=== PATIENT | male | born 1945 | race Caucasian/White ===

== ENCOUNTER → 2020-04-04 | Day surgery (SDC) | payer MEDICARE, OTHER ==
[~2020-04-04] MED LIST: ACID REDUCER PO; ASPIR 8181 MG PO; B12 PO; COQ-1030 MG PO; DIABETIC MEDICATION PO; FENOFIBRATE145 MG PO; FENTANYL CITRATE/PF 100MCG/2 ML INJ ONE; FISH OIL OMEGA1 EACH PO; GLUCAGON FOR INJ 1 MG VIAL ONE; HYOSCYAMINE 0.125 MG TAB ONE; JANUVIA100 MG PO; LIDOCAINE HCL 2% LOCAL INJ 5 ML SDV VIAL INJ ONE; MEN'S ONE DAIL1 EACH PO; METFORMIN HCL500 MG PO; MIDAZOLAM HCL 2 MG/2 ML VIAL ONE; POTASSIUM PO; PROPOFOL IV EMULSION 10 MG/ML 20 ML VIAL ONE; SIMVASTATIN20 MG PO; STOOL SOFTNER PO; VITAMIN D2000 UNI1 PO; VITAMIN D250 MCG PO
[2020-04-04 16:15] VITALS: BP 127/79
--- NOTE | 2020-04-04 18:29 | Operative Report ---
DATE OF PROCEDURE: 04/04/2020 SURGEON: Dom Tapia MD PROCEDURE: Colonoscopy with the EGD scope. INDICATIONS FOR COLONOSCOPY: Colorectal cancer screening, abnormal CT scan of the abdomen. MEDICATIONS: The patient was done under MAC, please see anesthesiologist's note. PROCEDURE IN DETAIL: With the patient in the left lateral decubitus position, a flexible fiberoptic Olympus colonoscope was introduced into the rectum and advanced to the distal sigmoid colon. It could not be advanced any further as the distal sigmoid colon was sharply angulated and fixed, and could not be traversed with the adult colonoscope. It was then withdrawn. An EGD scope was then introduced into the rectum and with some difficulty, the distal sigmoid colon was traversed and the scope was advanced to approximately 90 cm from the anal verge probably to the transverse colon. It was then withdrawn slowly and some retained fecal material was noted along with diverticular disease involving the descending and the sigmoid. One polyp was hot snared from the sigmoid colon. There was a prominent fold noted at the rectosigmoid junction that was biopsied. Two polyps were hot snared and one polyp was hot biopsied from the rectum. The scope was then retroflexed into the distal rectum and small internal hemorrhoids were noted, none of which was actively bleeding. The scope was then straightened out, it was subsequently withdrawn, and the patient tolerated the procedure well. IMPRESSION: 1. Colonoscopy with the EGD scope to approximately 90 cm from the anal verge. 2. Sharply angulated and fixed distal sigmoid colon, could not be traversed with the colonoscope and was negotiated with some difficulty with the EGD scope. 3. Diverticulosis. 4. Sigmoid colon polyp, hot snared. 5. Prominent folds rectosigmoid area, biopsied. 6. Rectal polyps x3, two hot snared and one hot biopsied. 7. Internal hemorrhoids, none actively bleeding. PLAN: Follow up histology. The patient will need an air contrast barium enema to visualize the rest of the colon. Dom Tapia MD [facility] [place] /[id number] cc: Salinas Yu MD
== END | disposition home or self-care (01) ==
LOC: OR 12:07
PROVIDERS: ATTEND Internal Medicine Gastroenterology
DX: R93.3 Abnormal findings on diagnostic imaging of other parts of digestive tract (principal); K63.5 Polyp of colon; K62.1 Rectal polyp; K57.30 Diverticulosis of large intestine without perforation or abscess without bleeding; K63.89 Other specified diseases of intestine; K59.09 Other constipation; K64.8 Other hemorrhoids; K21.9 Gastro-esophageal reflux disease without esophagitis; E11.9 Type 2 diabetes mellitus without complications; R03.0 Elevated blood-pressure reading, without diagnosis of hypertension; R53.1 Weakness; N20.0 Calculus of kidney; M19.90 Unspecified osteoarthritis, unspecified site; R01.1 Cardiac murmur, unspecified; E78.5 Hyperlipidemia, unspecified; Z88.2 Allergy status to sulfonamides; Z01.810 Encounter for preprocedural cardiovascular examination; Z01.812 Encounter for preprocedural laboratory examination; Z11.59 Encounter for screening for other viral diseases; Z79.82 Long term (current) use of aspirin; Z86.19 Personal history of other infectious and parasitic diseases; Z87.01 Personal history of pneumonia (recurrent); Z86.11 Personal history of tuberculosis
CPT/HCPCS: 45380; 45384; 45385; 93005; J1610; J2001; J2250; J2704; J3010; U0002

== ENCOUNTER → 2020-04-15 | Outpatient (CLI) | payer MEDICARE ==
[~2020-04-15] MED LIST changes: -FENTANYL CITRATE/PF 100MCG/2 ML INJ ONE; -GLUCAGON FOR INJ 1 MG VIAL ONE; -HYOSCYAMINE 0.125 MG TAB ONE; -LIDOCAINE HCL 2% LOCAL INJ 5 ML SDV VIAL INJ ONE; -MIDAZOLAM HCL 2 MG/2 ML VIAL ONE; -PROPOFOL IV EMULSION 10 MG/ML 20 ML VIAL ONE
--- NOTE | 2020-04-15 12:10 | Diagnostic Imaging Report ---
EXAM: Abdomen Radiograph 1 View(s) INDICATION: ^[id number] ^[id number] ^ABDOMEN PAIN COMPARISON: None FINDINGS: The bowel gas pattern is nonspecific. Moderate volume of formed stool within the colon. Small calcific densities in the abdominal left upper quadrant may be vascular in etiology. No free intraperitoneal air. Degenerative changes of the lumbar spine. IMPRESSION: No acute abdominal radiographic abnormality. Signed by: Dipak Benitez MD on 04/15/2020 12:07 PM
== END ==
LOC: RAD 11:17
PROVIDERS: ATTEND Internal Medicine Gastroenterology
DX: R10.12 Left upper quadrant pain (principal)
CPT/HCPCS: 74018

== ENCOUNTER → 2020-05-20 | Outpatient (CLI) | payer MEDICARE ==
[~2020-05-20] MED LIST changes: +FENTANYL CITRATE/PF 100MCG/2 ML INJ ONE; +MIDAZOLAM HCL 2 MG/2 ML VIAL ONE
[2020-05-20 07:54] LABS: HEMOGLOBIN 11.1 g/dL (14.0-18.0)
[2020-05-20 08:12] LABS: INR 1.06; PROTHROMBIN TIME 14.3 seconds (11.9-14.5)
[2020-05-20 08:13] LABS: PARTIAL THROMBOPLASTIN TIME 32.2 seconds (23.8-35.5)
--- NOTE | 2020-05-20 11:25 | Diagnostic Imaging Report ---
PROCEDURE: CT-guided biopsy Procedural Personnel Attending physician(s): Db Negrete MD Fellow physician(s): None Resident physician(s): None Advanced practice provider(s): None Pre-procedure diagnosis: Peritoneal carcinomatosis Post-procedure diagnosis: Same Indication: Histopathologic diagnosis Previous biopsy of same target (QCDR): No Additional clinical history: None Complications: No immediate complications. IMPRESSION: CT-guided biopsy of peritoneal soft tissue thickening. Plan: Specimen(s) sent for evaluation. PROCEDURE SUMMARY: - Percutaneous CT-guided core needle and fine needle aspiration biopsy biopsy - Additional procedure(s): None PROCEDURE DETAILS: Pre-procedure Reference imaging for biopsy target: Outside abdomen/pelvis CT Consent: Informed consent for the procedure including risks, benefits and alternatives was obtained and time-out was performed prior to the procedure. Preparation: The site was prepared and draped using maximal sterile barrier technique including cutaneous antisepsis. Anesthesia/sedation Level of anesthesia/sedation: Moderate sedation (conscious sedation) 0.5mg Versed, 25mcg fentanyl Anesthesia/sedation administered by: Independent trained observer under attending supervision with continuous monitoring of the patient?s level of consciousness and physiologic status Total intra-service sedation time (minutes): 45 Imaging prior to biopsy The patient was positioned supine. Initial imaging was performed using noncontrast CT. Biopsy target: - Maximal diameter (cm): 4 - Location: Midline/RUQ abdominal peritoneal soft tissue Other findings: Preliminary imaging demonstrates increased conspicuity of peritoneal soft tissue thickening. Bilateral pleural effusions have also increased compared to prior outside CT, now moderate in size. Redemonstration of multiple bilateral pulmonary nodules most likely metastatic. Biopsy Local anesthesia was administered. Under CT guidance, the biopsy needle was advanced to the target and biopsy was performed. Coaxial needle: 17 gauge Core needle biopsy device: [employer] Core needle size: 18 gauge Number of core specimens: 4 Fine needle aspiration device: Chiba Fine needle size: 22 gauge Number of FNA specimens: 3 On-site biopsy touch preparation: Yes Additional sampling recommendations: None Preliminary assessment of sample adequacy: Adequate Needle removal The biopsy needle was removed and a sterile dressing was applied. Tract embolization: None Imaging following biopsy Immediate post-biopsy imaging was performed using noncontrast CT. Post-biopsy imaging findings: No hematoma or other postprocedural complication. Contrast Contrast agent: None Contrast volume (mL): [address] dose length product (mGy-cm): 1031 Additional Details Additional description of procedure: None Equipment details: None Specimens removed: Biopsy samples as detailed above Estimated blood loss (mL): Less than 10 Standardized report: [id number] Attestation Signer name: Db Negrete MD I attest that I was present for the entire procedure. I reviewed the stored images and agree with the report as written. Signed by: Db Negrete MD on 05/20/2020 11:21 AM
== END ==
LOC: CT 07:22
PROVIDERS: ATTEND Internal Medicine Hematology & Oncology
DX: R91.8 Other nonspecific abnormal finding of lung field (principal); Z11.59 Encounter for screening for other viral diseases
CPT/HCPCS: 10009; 36415; 49180; 85014; 85049; 85610; 85730; 88172; 88173; 88305; 88342; J2250; J3010; U0002; 99152; 99153

== ENCOUNTER → 2020-06-02 | Day surgery (SDC) | payer MEDICARE, OTHER ==
[2020-05-30 16:08] LABS: BASOPHILS % 0.2 % (0.0-1.0); EOSINOPHILS % 0.1 % (0.0-6.0); HEMATOCRIT 34.7 % (38.2-49.6); LYMPHOCYTES % 11.4 % (18.0-39.1); MEAN CORPUSCULAR HEMOGLOBIN 29.2 pg (28-32); MEAN CORPUSCULAR HGB CONC 31.7 g/dL (31-35); MONOCYTES # (AUTO) 0.5 (0.2-0.8); MONOCYTES % 6.4 % (4.4-11.3); NEUTROPHILS # (AUTO) 6.9 (2.1-6.9); NEUTROPHILS % 81.7 % (38.7-80.0); PLATELET COUNT 220 x10e3/uL (140-360); RED BLOOD COUNT 3.77 x10e6/uL (4.3-5.7); RED CELL DISTRIBUTION WIDTH 13.4 % (11.7-14.4)
[2020-05-30 16:35] LABS: ALBUMIN 2.4 g/dL (3.5-5.0); ALBUMIN/GLOBULIN RATIO 0.7 (0.8-2.0); ANION GAP 11.2 mmol/L (8-16); CALCIUM 11.1 mg/dL (8.4-10.2); CREATININE, SERUM 1.99 mg/dL (0.72-1.25); POTASSIUM 3.2 mmol/L (3.5-5.1)
[~2020-06-02] MED LIST changes: +BUPIVACAINE 0.25% 30ML SDV INJ ONE; +DIURETIC; +HEPARIN SOD (PORCINE) 5,000 UNIT/ML VIAL ONE; +LIDOCAINE HCL 1% LOCAL INJ 20 ML VIAL ONE; +LIDOCAINE HCL 2% LOCAL INJ 5 ML SDV VIAL INJ ONE; +PIOGLITAZONE HC45 MG PO; +PROPOFOL IV EMULSION 10 MG/ML 20 ML VIAL ONE; +SODIUM CHLORIDE 0.9% 500ML 500 ML ONE; +VITAMIN PO; +[UNRECOGNIZED DRUG - OTHER] PO
[2020-06-02 15:30] VITALS: BP 119/76
== END | disposition home or self-care (01) ==
LOC: OR 09:49
PROVIDERS: ATTEND Surgery
DX: C15.9 Malignant neoplasm of esophagus, unspecified (principal); I10 Essential (primary) hypertension; E11.9 Type 2 diabetes mellitus without complications; Z88.2 Allergy status to sulfonamides; K21.9 Gastro-esophageal reflux disease without esophagitis; Z01.812 Encounter for preprocedural laboratory examination; Z01.818 Encounter for other preprocedural examination; Z11.59 Encounter for screening for other viral diseases
CPT/HCPCS: 36415 ×2; 36571; 71046; 77001; 80053; 82948; 84132; 85025; C1751; J1644; J2001 ×2; J2250; J2704; J3010; J7040; U0002

== ENCOUNTER 2020-06-15 12:18 | Observation (INO) | payer MEDICARE, OTHER ==
[~2020-06-15] VITALS: Ht 177.8 cm; Wt 68.0 kg
[~2020-06-15 12:18] MED LIST changes: -BUPIVACAINE 0.25% 30ML SDV INJ ONE; -FENTANYL CITRATE/PF 100MCG/2 ML INJ ONE; -HEPARIN SOD (PORCINE) 5,000 UNIT/ML VIAL ONE; -LIDOCAINE HCL 1% LOCAL INJ 20 ML VIAL ONE; -LIDOCAINE HCL 2% LOCAL INJ 5 ML SDV VIAL INJ ONE; -MIDAZOLAM HCL 2 MG/2 ML VIAL ONE; -PROPOFOL IV EMULSION 10 MG/ML 20 ML VIAL ONE; -SODIUM CHLORIDE 0.9% 500ML 500 ML ONE
[2020-06-15] MEDS ORDERED: SODIUM CHLORIDE 0.9% 1000ML 1,000 ML IV STA (12:48)
[2020-06-15] MEDS ORDERED: PANTOPRAZOLE 40 MG 10ML VIAL IV ONE (12:48)
[2020-06-15] MEDS ORDERED: ONDANSETRON HCL INJ 2MG/ML 2ML 2 MG/ML VIAL IV ONE (12:48)
[2020-06-15 13:29] LABS: BASOPHILS % 0.2 % (0.0-1.0); LYMPHOCYTES # (AUTO) 0.5 (1.0-3.2); LYMPHOCYTES % 3.4 % (18.0-39.1); MEAN CORPUSCULAR HEMOGLOBIN 29.4 pg (28-32); MEAN CORPUSCULAR HGB CONC 32.5 g/dL (31-35); MEAN CORPUSCULAR VOLUME 90.5 fL (81-99); MONOCYTES # (AUTO) 0.4 (0.2-0.8); MONOCYTES % 2.7 % (4.4-11.3); NEUTROPHILS # (AUTO) 14.9 (2.1-6.9); NEUTROPHILS % 93.1 % (38.7-80.0); PLATELET COUNT 192 x10e3/uL (140-360); RED BLOOD COUNT 4.42 x10e6/uL (4.3-5.7); RED CELL DISTRIBUTION WIDTH 14.9 % (11.7-14.4)
[2020-06-15 13:39] LABS: INR 1.18; PROTHROMBIN TIME 15.6 seconds (11.9-14.5)
[2020-06-15 13:40] LABS: PARTIAL THROMBOPLASTIN TIME 31.2 seconds (23.8-35.5)
--- NOTE | 2020-06-15 13:41 | Emergency Department Note ---
History of Present Illnes History of Present Illness Chief Complaint: General Medicine Complaints History of Present Illness This is a 75 year old male FAMILY REPORTS PT PASSED OUT, PT DENIES, PT AAOX4. EMS CALLED TO HOME TO TRANSPORT. PT IS HOSPICE D/T TERMINAL CANCER UNK TYPE. Historian: Patient, Family Member, Pcb Designer/EMS Arrival Mode: [facility] EMS Treatment [employer] SALES ENGINEER: See EMS Report Aviation Neuropsychologist Required: No Onset (how long ago): minute(s) Radiation: Reports non-radiation Severity: moderate Chronicity: new Context: Reports recent illness Relieving factors: none Exacerbating factors: none Past Medical/Family History Physician Review I have reviewed the patient's past medical and family history. Any updates have been documented here. Past Medical History Recent Fever: No Clinical Suspicion of Infectio: No New/Unexplained Change in Ment: No Past Medical History: Diabetes, Cancer Social History Smoking Cessation: Unknown if ever smoked Counseling Performed: No Alcohol Use: None Any Illegal Drug Use: No TB Exposure/Symptoms: No Physically hurt or threatened: No Family History Family history of heart diseas: No Other Any Pre-Existing Lines (PICC,: No Review of Systems Review of Systems Constitutional: Reports weakness EENTM: Reports no symptoms Cardiovascular: Reports syncope (NEAR-SYNCOPE) Respiratory: Reports no symptoms Gastrointestinal: Reports other (UNABLE TO EAT/DRINK) Genitourinary: Reports no symptoms Musculoskeletal: Reports no symptoms Integumentary: Reports no symptoms Neurological: Reports no symptoms Psychological: Reports no symptoms Endocrine: Reports no symptoms Hematological/Lymphatic: Reports no symptoms Physical Exam Related Data Allergies: Coded Allergies: Sulfa (Sulfonamide Antibiotics) (Verified Allergy, Intermediate, VERY BAD VERTIGO, "KNOCK ME OUT", 06/15/20) Uncoded Allergies: SULFA (Allergy, Intermediate, VERY BAD VERTIGO, "KNOCK ME OUT", 05/30/20) Triage Vital Signs Vital Signs Date Time Temp Pulse Resp B/P (MAP) Pulse Ox O2 Delivery O2 Flow Rate FiO2 06/15/20 12:20 97.1 88 18 94/67 99 Nasal Cannula 4.0 Vital signs reviewed: Yes Physical Exam CONSTITUTIONAL Constitutional: Present cachectic HENT HENT: Present normocephalic, Present atraumatic, Present mucosae dry HENT L/R: Present left ext ear normal, Present right ext ear normal EYES Eyes: Reports PERRL, Reports conjunctivae normal NECK Neck: Present ROM normal PULMONARY Pulmonary: Present effort normal, Present breath sounds normal CARDIOVASCULAR Cardiovascular: Present regular rhythm, Present heart sounds normal, Present capillary refill normal, Present normal rate GASTROINTESTINAL Abdominal: Present soft, Present nontender, Present bowel sounds normal GENITOURINARY Genitourinary: Present exam deferred SKIN Skin: Present warm, Present dry MUSCULOSKELETAL Musculoskeletal: Present ROM normal NEUROLOGICAL Neurological: Present alert, Present oriented x 3, Present no gross motor or sensory deficits PSYCHOLOGICAL Psychological: Present mood/affect normal, Present judgement normal Results Laboratory Result Diagram: 06/15/20 1320 Laboratory Laboratory Tests Test 06/15/20 14:48 06/15/20 13:20 White Blood Count 15.94 x10e3/uL (4.8-10.8) Red Blood Count 4.42 x10e6/uL (4.3-5.7) Hemoglobin 13.0 g/dL (14.0-18.0) Hematocrit 40.0 % (38.2-49.6) Mean Corpuscular Volume 90.5 fL (81-99) Mean Corpuscular Hemoglobin 29.4 pg (28-32) Mean Corpuscular Hemoglobin Concent 32.5 g/dL (31-35) Red Cell Distribution Width 14.9 % (11.7-14.4) Platelet Count 192 x10e3/uL (140-360) Neutrophils (%) (Auto) 93.1 % (38.7-80.0) Lymphocytes (%) (Auto) 3.4 % (18.0-39.1) Monocytes (%) (Auto) 2.7 % (4.4-11.3) Eosinophils (%) (Auto) 0.0 % (0.0-6.0) Basophils (%) (Auto) 0.2 % (0.0-1.0) Neutrophils # (Auto) 14.9 (2.1-6.9) Lymphocytes # (Auto) 0.5 (1.0-3.2) Monocytes # (Auto) 0.4 (0.2-0.8) Eosinophils # (Auto) 0.0 (0.0-0.4) Basophils # (Auto) 0.0 (0.0-0.1) Absolute Immature Granulocyte (auto 0.09 x10e3/uL (0-0.1) Prothrombin Time 15.6 seconds (11.9-14.5) Prothromb Time International Ratio 1.18 Activated Partial Thromboplast Time 31.2 seconds (23.8-35.5) Sodium Level 140 mmol/L (136-145) Potassium Level 3.1 mmol/L (3.5-5.1) Chloride Level 96 mmol/L (98-107) Carbon Dioxide Level 28 mmol/L (22-29) Anion Gap 19.1 mmol/L (8-16) Blood Urea Nitrogen 53 mg/dL (7-26) Creatinine 2.07 mg/dL (0.72-1.25) Estimat Glomerular Filtration Rate 31 ML/MIN (60-) BUN/Creatinine Ratio 26 (6-25) Glucose Level 156 mg/dL (74-118) Calcium Level 8.9 mg/dL (8.4-10.2) Magnesium Level 2.0 MG/DL (1.3-2.1) Total Bilirubin 1.6 mg/dL (0.2-1.2) Aspartate Amino Transf (AST/SGOT) 27 IU/L (5-34) Alanine Aminotransferase (ALT/SGPT) 16 IU/L (0-55) Alkaline Phosphatase 139 IU/L (40-150) Creatine Kinase 32 IU/L (30-200) Creatine Kinase MB 1.10 ng/mL (0-5.0) Troponin I 0.021 ng/mL (0-0.300) B-Type Natriuretic Peptide 131.2 pg/mL (0-100) Total Protein 5.5 g/dL (6.5-8.1) Albumin 2.1 g/dL (3.5-5.0) Globulin 3.4 g/dL (2.3-3.5) Albumin/Globulin Ratio 0.6 (0.8-2.0) Laboratory Tests Test 06/15/20 13:20 White Blood Count 15.94 x10e3/uL (4.8-10.8) Red Blood Count 4.42 x10e6/uL (4.3-5.7) Hemoglobin 13.0 g/dL (14.0-18.0) Hematocrit 40.0 % (38.2-49.6) Mean Corpuscular Volume 90.5 fL (81-99) Mean Corpuscular Hemoglobin 29.4 pg (28-32) Mean Corpuscular Hemoglobin Concent 32.5 g/dL (31-35) Red Cell Distribution Width 14.9 % (11.7-14.4) Platelet Count 192 x10e3/uL (140-360) Neutrophils (%) (Auto) 93.1 % (38.7-80.0) Lymphocytes (%) (Auto) 3.4 % (18.0-39.1) Monocytes (%) (Auto) 2.7 % (4.4-11.3) Eosinophils (%) (Auto) 0.0 % (0.0-6.0) Basophils (%) (Auto) 0.2 % (0.0-1.0) Neutrophils # (Auto) 14.9 (2.1-6.9) Lymphocytes # (Auto) 0.5 (1.0-3.2) Monocytes # (Auto) 0.4 (0.2-0.8) Eosinophils # (Auto) 0.0 (0.0-0.4) Basophils # (Auto) 0.0 (0.0-0.1) Absolute Immature Granulocyte (auto 0.09 x10e3/uL (0-0.1) Lab results reviewed: Yes Imaging Imaging results reviewed: Yes Procedures 12 Lead ECG Interpretation ECG Interpretation : ECG: ECG 1 Aviation Neuropsychologist: Interpreted by ED physician Date: Jun 15, 2020 Time: 13:34 Rhythm: atrial fibrillation Rate: tachycardia BPM: 147 QRS axis: normal ST segments normal: Yes T waves flattening: all Clinical Impression: abnormal ECG Assessment & Plan Medical Decision Making MDM METASTATIC END-STAGE CANCER, PT DNR AND ON HOSPICE, VERY DEHYDRATED DUE TO INABILITY TO EAT/DRINK- CHECK BASELINE LABS, ADMIT FOR COMFORT MEASURES AND PLACEMENT OF FEEDING TUBE Reassessment Reassessment PT AND FAMILY AGREE THAT HE WANTS ONLY COMFORT MEASURES - WILL ADMIT FOR IVF'S, G-TUBE SINCE HE IS UNABLE TO EAT OR DRINK. I SPOKE WITH DR MOELLER (PCP) WHO AGREES WITH PLAN TO PLACE IN HOSPITAL, COMFORT MEASURES AND FEEDING TUBE PLACEMENT SO PT CAN STAY HYDRATED. SPOKE WITH DR Elsy DICKERSON Assessment & Plan Final Impression: (1) Dehydration (2) Metastatic cancer (3) Hypokalemia (4) Atrial fibrillation with RVR (5) Need for comfort care Depart Disposition: ADMITTED Last Vital Signs Date Time Temp Pulse Resp B/P (MAP) Pulse Ox O2 Delivery O2 Flow Rate FiO2 06/15/20 12:46 106 18 112/71 94 Nasal Cannula 3.0 06/15/20 12:20 97.1 Home Meds Reported Medications [Spironolactone Hctz] No Conflict Check, PO BID 06/02/20 [Vitamin] No Conflict Check, PO DAILY 06/02/20 Pioglitazone Hcl (PIOGLITAZONE HCL) 45 Mg Tablet, 15 MG PO DAILY, #30 TAB 06/02/20 Ubidecarenone (COQ-10) 30 Mg Capsule, PO DAILY 04/04/20 Ergocalciferol (Vitamin D2) (Vitamin D2) 50 Mcg Capsule, PO DAILY 04/04/20 Fenofibrate Nanocrystallized (FENOFIBRATE) 145 Mg Tablet, 145 MG PO DAILY 04/02/20 Cholecalciferol (Vitamin D3) (VITAMIN D) 2,000 Unit Tablet, 2000 UNITS PO DAILY 04/08/15 [Potassium] No Conflict Check, 595 MG PO DAILY 04/08/15 Aspirin (ASPIR 81) 81 Mg Tablet.dr, 81 MG PO DAILY 04/08/15 Sitagliptin Phosphate (JANUVIA) 100 Mg Tablet, 50 MG PO DAILY, #30 TAB 04/08/15 Medications in the ED Pantoprazole Sodium 40 mg ONCE ONCE IV ; Start 06/15/20 at 12:48; Stop 06/15/20 at 12:55; Status DC Ondansetron HCl 4 mg ONCE ONCE IV ; Start 06/15/20 at 12:48; Stop 06/15/20 at 12:55; Status DC Sodium Chloride 1,000 ml @ 0 mls/hr Q0M STAT IV ; Start 06/15/20 at 12:48; Stop 06/15/20 at 12:50; Status DC CHICA COLLINS MD Jun 15, 2020 13:41
[2020-06-15 13:49] LABS: ALBUMIN 2.1 g/dL (3.5-5.0); ALBUMIN/GLOBULIN RATIO 0.6 (0.8-2.0); ANION GAP 19.1 mmol/L (8-16); CALCIUM 8.9 mg/dL (8.4-10.2); CREATININE, SERUM 2.07 mg/dL (0.72-1.25); POTASSIUM 3.1 mmol/L (3.5-5.1)
[2020-06-15 13:55] LABS: CREATINE KINASE MB 1.1 ng/mL (0-5.0)
--- NOTE | 2020-06-15 13:58 | Diagnostic Imaging Report ---
EXAMINATION: CHEST SINGLE (PORTABLE) INDICATION: Shortness of breath with history of metastatic cancer. COMPARISON: Chest x-ray on 05/30/2020. FINDINGS: TUBES and LINES: Right chest wall Port-A-Cath. LUNGS: There is diffuse opacification of the right lung. There is interstitial prominence and hazy basal opacification of the left lung. PLEURA: Probable moderate right and small left pleural effusion. No pneumothorax. HEART AND MEDIASTINUM: The cardiomediastinal silhouette is unremarkable. BONES AND SOFT TISSUES: Degenerative changes in the spine and shoulders. Soft tissues are unremarkable. UPPER ABDOMEN: No free air under the diaphragm. IMPRESSION: 1. Interval worsening of the lungs with almost complete hazy opacification of the right lung and left interstitial prominence with basilar opacification. These findings may represent multifocal pneumonia and or pulmonary edema with superimposed subsegmental atelectasis. 2. Moderate right and small left pleural effusion. Signed by: Sveta Gardiner MD on 06/15/2020 1:55 PM
[2020-06-15] MEDS ORDERED: MORPHINE SULFATE 2 MG/ML SYR 1ML IV PRN (14:15)
[2020-06-15] MEDS ORDERED: ONDANSETRON HCL INJ 2MG/ML 2ML 2 MG/ML VIAL IV PRN (14:15)
[2020-06-15] MEDS: KCL 20MEQ/.9 SOD CHL 1,000 ML IV SCH ×2 (15:22→20:50)
[2020-06-15 15:34] VITALS: BP 94/70
--- NOTE | 2020-06-15 15:34 | NUR ---
Received patient from ER. Spouse at bedside. Patient is AOx4. Very weak. NPO at this time. Denies pain. O2 at 3L via NC. Orientated to room, TV and house to use the call button. Aminata care provided. Small BM on the diaper noted. Sacral excoriation that looks like stage 2 ulcer noted, cleanse and applied allevyn foam. Tolerated care without SOB. BLE swelling +2 pitting edema, elevated lower extremities with pillow. Skin tears to right foot, applied allevyn foam. skin tear to right knee, applied allevyn foam. Call light in reach.
[2020-06-15 16:00] VITALS: BP 94/70
--- NOTE | 2020-06-15 18:50 | NUR ---
Report given to night nurse. Respiration even and unlabored without SOB. Call light in reach. Denies pain at this time. Right subclavian port in placed intact.
[2020-06-15 20:00] VITALS: BP 121/79
[2020-06-15 20:14] VITALS: BP 121/79
[2020-06-15 20:18] VITALS: BP 121/79
[2020-06-15 20:33] VITALS: BP 121/79
[2020-06-16] VITALS (8 sets, daily range): BP systolic 94–113; BP diastolic 67–82
--- NOTE | 2020-06-16 01:18 | NUR ---
MD DICKERSON CONSULTING/ROUNDNG ON PATIENT, PATIENT GIVEN INCONTINENCE CARE, AND REPOSITIONED, PATIENT REFUSING PEG TUBE FEEDING AT THIS TIME, PATIENT STATES " I DONT WANT THAT I KNOW IT MY TIME, I HAVE MY LIVING WILL FILLED OUT, AND I DONT WANT MY FAMILY WATCHING ME WASTE AWAY", PATIENT CALL LIGHT WITHIN REACH, EDUCATED ABOUT CALLING FOR ASSISTANCE
[2020-06-16] MEDS: PANTOPRAZOLE 40 MG 10ML VIAL IV SCH ×2 (01:51→09:10)
--- NOTE | 2020-06-16 06:41 | NUR ---
MD MOELLER ROUNDING ON PATIENT, CONSULTED WITH ME STATING " PATIENT CAN GO HOME TODAY"
[2020-06-16 07:16] LABS: BASOPHILS % 0.1 % (0.0-1.0); EOSINOPHILS % 0.1 % (0.0-6.0); HEMATOCRIT 34.7 % (38.2-49.6); HEMOGLOBIN 11.2 g/dL (14.0-18.0); LYMPHOCYTES % 7.9 % (18.0-39.1); MEAN CORPUSCULAR HEMOGLOBIN 29.4 pg (28-32); MEAN CORPUSCULAR HGB CONC 32.3 g/dL (31-35); MEAN CORPUSCULAR VOLUME 91.1 fL (81-99); MONOCYTES # (AUTO) 0.4 (0.2-0.8); MONOCYTES % 3.2 % (4.4-11.3); NEUTROPHILS # (AUTO) 10.8 (2.1-6.9); NEUTROPHILS % 88.3 % (38.7-80.0); PLATELET COUNT 129 x10e3/uL (140-360); RED BLOOD COUNT 3.81 x10e6/uL (4.3-5.7); RED CELL DISTRIBUTION WIDTH 15.2 % (11.7-14.4)
[2020-06-16 07:32] LABS: ANION GAP 13.7 mmol/L (8-16); CALCIUM 7.7 mg/dL (8.4-10.2); CREATININE, SERUM 2.03 mg/dL (0.72-1.25); POTASSIUM 3.7 mmol/L (3.5-5.1)
--- NOTE | 2020-06-16 07:52 | History and Physical ---
CHIEF COMPLAINT: Weakness, nausea, and inability to keep food down. HISTORY OF PRESENT ILLNESSES: This is Mr. Irvin Jean Baptiste with a history of adenocarcinoma on hospice was in usual state of health until the patient was getting out of the bathroom. His feet pulled and the patient was also having severe nausea and an intractable vomiting. The patient was brought into the emergency room and was found to be in severe dehydration. The patient is admitted to the hospital for dehydration and also for malnutrition. PAST SURGICAL HISTORY: Noncontributory. SOCIAL HISTORY: In hospice. PAST MEDICAL HISTORY: History of hypertension, hyperlipidemia, and also inoperable adenocarcinoma. The patient is at hospice. REVIEW OF SYSTEMS: Positive for chest pain, positive for some shortness of breath. Positive for nausea, vomiting, and no diarrhea. No constipation. No rectal bleeding. No hematochezia. No hematemesis. PHYSICAL EXAMINATION: VITAL SIGNS: Temperature is 97.1, pulse of 78, respirations of 17, blood pressure is 112/67, pulse oximetry of 97% on room air. HEENT: Normocephalic, atraumatic. Pupils are reactive. CVS: S1 and S2. Tachy. ABDOMEN: Soft, tender in the epigastrium. EXTREMITIES: No clubbing, no cyanosis, no edema. The patient is generally very cachectic and very lethargic. LABORATORY VALUES: White count is 15,000. Hemoglobin is 13, hematocrit of 40. Chemistries show sodium 140, potassium 3.1, BUN of 53, creatinine of 2.07 the GFR of 31. BNP was 132. Serology; coronavirus is pending. Coags, INR is 1.18. ASSESSMENT AND PLAN: This is Mr. Irvin Jean Baptiste with severe dehydration, adenocarcinoma, and atrial fibrillation. PLAN: At this point of time, the patient is in hospice. No antibiotics by the patient. I did ask him in detail. The patient is not on antibiotics. Does not want any G-tube. Does not want any interventions at this time. IV fluids to continue. We will check his labs today and if okay, the patient can be discharged home back with hospice and IV fluids in the hospice realm. Further recommendation per clinical course. We will continue to monitor the patient while he is in the hospital and again a long lengthy discussion with the patient was done and he is alert and oriented x3 and does not want any intervention. MD GURPREET [place] /[id number]
--- NOTE | 2020-06-16 13:14 | NUR ---
WOUND CARE CONSULT 75 YO MALE HX OF STOMACH CA ,DEHYDRATION ,A FIB JAVIER 11 0N STRICT PUP STATUS AND INTERVENTIONS ALTERNATING SURFACE LABS: WBC- 15.94 HGB- 13.0 GLUCOSE-156 HEAD TO TOE SKIN ASSESSMENT COMPLETE PATIENT PRESENTS WITH SACRAL AND RIGHT GLUTEAL STAGE 2 ULCERS RIGHT KNEE AND RIGHT DORSAL FOOT NON PRESSURE RELATED PARTIAL THICKNESS WOUNDS RECOMMENDATIONS: NURSING TO CONTINUE TO MONITOR PATIENT AND KEEP SKIN CLEAN AND FREE FROM LOOSE STOOL OR IRRITATING MOISTURE AND CONTINUE TO FOLLOW STRICT PUP STATUS INTERVENTIONS NURSING TO CONTINUE TO GET PATIENT OUT OF BED FOR MEALS AND MUCH TOLERATED NURSING TO CLEAN SACRAL AND RIGHT GLUTEAL STAGE 2 ULCERS WITH NORMAL SALINE DAILY AND APPLY VENELEX OINTMENT TO AND COVER WITH ALLEVYN FOAM DRESSING NURSING TO CLEAN RIGHT KNEE AND RIGHT DORSAL FOOT NON PRESSURE RELATED PARTIAL THICKNESS WOUNDS WITH NORMAL SALINE DAILY AND APPLY FIBRACOL PLUS TO WOUND BASES AND COVER WITH ALLEVYN FOAM DRESSINGS Addendum: 06/16/20 at 1320 by Demetri Franco RN Amended: Links added.
--- NOTE | 2020-06-16 14:51 | NUR ---
Spoke to pt at bedside. Pt currently on service with [facility] and wants to continue with them. Choice letter signed and placed in front of chart. Copy to pt. Pt states they called his and will come by the house tomorrow morning. CM called and spoke with Elif and informed her pt discharging today. She asked that clinicals be sent to [phone]. Clinicals faxed. Confirmation received.
[2020-06-16] MEDS ORDERED: HEPARIN SOD (PORCINE) 1000 UNIT/ML 10ML MDV IV ONE (16:15)
[2020-06-16] MEDS ORDERED: HEPARIN 500 UNITS/5ML MDV INJ ONE (17:00)
[2020-06-17] MEDS ORDERED: BALSAM PERU/CASTOR OIL 60 GM OINT...G. TP SCH (09:00)
--- OUTSIDE RECORDS SUMMARY | 2020-06-19 18:27 | XMS REPORT | Continuity of Care Document ---
Author Author [facility] Organization [facility] Address [address] [place] [address] [place] [address] Phone Unavailable Care Team Providers Care Vice President Consulting Services Name Role Phone Yunier COLLINS Attphys Unavailable Hang GAONA Attphys Unavailable JUWANANA Attphys Unavailable DICKERSON, LUIS MANUEL Attphys Unavailable DICKERSON, LUIS MANUEL Admphys Unavailable Problems This patient has no known problems. Allergies, Adverse Reactions, Alerts This patient has no known allergies or adverse reactions. Medications This patient has no known medications. Procedures This patient has no known procedures. Results Test Description Test Time Test Comments Results Result Comments Source CHEST SINGLE (PORTABLE) 2020-06-15 13:36:00 [facility] 1945 Sex: M [facility] [address] [place], [place] [address] Patient Name: CARRI COURTNEY MR #: [id number] : 1945 Age/Sex: 75/M Req #: [id number] Adm Physician: Ordered by: CHICA COLLINS MD Report #: [id number] Location: ER Room/Bed: Procedure: [id number] DX/CHEST SINGLE (PORTABLE) Exam Date: 06/15/20 Exam Time: 1325 REPORT STATUS: Signed EXAMINATION: CHEST SINGLE (PORTABLE) INDICATION: Shortness of breath with history of metastatic cancer. COMPARISON: Chest x-ray on 05/30/2020. FINDINGS: TUBES and LINES: Right chest wall Port-A-Cath. LUNGS: There is diffuse opacification of the right lung. There is interstitial prominence and hazy basal opacification of the left lung. PLEURA: Probable moderate right and small left pleural effusion. No pneumothorax. HEART AND MEDIASTINUM: The cardiomediastinal silhouette is unremarkable. BONES AND SOFT TISSUES: Degenerative changes in the spine and shoulders. Soft tissues are unr emarkable. UPPER ABDOMEN: No free air under the diaphragm. IMPRESSION: 1. Interval worsening of the lungs with almost complete hazy opacification of the right lung and left interstitial prominence with basilar opacification. These findings may represent multifocal pneumonia and or pulmonary edema with superimposed subsegmental atelectasis. 2. Moderate right and small left pleural effusion. Signed by: Carla Corrigan MD on 06/15/2020 1:55 PM Dictated By: CARLA CORRIGAN MD 1355 Transcribed By: PRINCE on 06/15/20 1355 COPY TO: CHICA COLLINS MD CHEST 2 VIEWS 2020-05-30 16:52:00 [facility] : 1945 Sex: M [place] [address] Patient Name: CARRI COURTNEY MR #: [id number] : 1945 Age/Sex: 75/M Req #: [id number] Adm Physician: Ordered by: COLEEN GAONA MD Report #: [id number] Location: OR Room/Bed: Procedure: [id number] DX/CHEST 2 VIEWS Exam Date: 05/30/20 Exam Time: 1633 REPORT STATUS: Signed EXAM: CHEST 2 VIEWS DATE: 05/30/2020 4:33 PM INDICATION: Preoperative evaluation COMPARISON: None FINDINGS: The trachea is midline. There are small bilateral pleural effusions with associated bibasilar opacities suggestive of atelectasis. There is no evidence for large focal consolidation or pneumothorax. The cardiomediastinal silhouette is within normal limits. Degenerative changes noted of the visualized spine. No acute osseous abnormality is identified. IMPRESSION: Small bilateral pleural effusions with associated bibasilar atelectasis. Signed by: Dr. Sebastian Fong MD on 05/30/2020 4:54 PM Dictated By: SEBASTIAN FONG MD 53 Transcribed By: PRINCE on 05/30/201653 COPY TO: COLEEN GAONA MD FNA CT GUIDED 1ST LESION 2020-05-20 11:18:00 [place] [address] Patient Name: CARRI COURTNEY MR #: [id number] : 1945 Age/Sex: 75/M Re #: [id number] [facility] Physician: Ordered by: ANA ECHEVERRIA MD Report #: [id number] Location: [place] Room/Bed: Procedure: [id number] IR/FNA CT GUIDED 1ST LESION Exam Date: 05/20/20 Exam Time: 0900 REPORT STATUS: Signed PROCEDURE: CT-guided biopsy Procedural Personnel Attending physician(s): Pricila Negrete MD Fellow physician(s): None Resident physician(s): None Advanced practice provider(s): None Pre-procedure diagnosis: Peritoneal carcinomatosis Post-procedure diagnosis: Same Indication: Histopathologic diagnosis Previous biopsy of same target (QCDR): No Additional clinical history: None Complications: No immediate complications. IMPRESSION: CT-guided biopsy of peritoneal soft tissue thickening. Plan: Specimen(s) sent for evaluation. PROCEDURE SUMMARY: - Percutaneous CT-guided core needle and fine needle aspiration biopsy biopsy - Additional procedure(s): None PROCEDURE DETAILS: Pre-procedure Reference imaging for biopsy target: Outside abdomen/pelvis CT Consent: Informed consent for the procedure including risks, benefits and alternatives was obtained and time-out was performed prior to the procedure. Preparation: The site was prepared and draped using maximal sterile barrier technique including cutaneous antisepsis. Anesthesia/sedation Level of anesthesia/sedation: Moderate sedation (conscious sedation) 0.5mg Versed, 2 5mcg fentanyl Anesthesia/sedation administered by: Independent trained observer under attending supervision with continuous monitoring of the patient?s level of consciousness and physiologic status Total intra-service sedation time (minutes): 45 Imaging prior to biopsy The patient was positioned supine. Initial imaging was performed using noncontrast CT. Biopsy target: - Maximal diameter (cm): 4 - Location: Midline/RUQ abdominal peritoneal soft tissue Other findings: Preliminary imaging demonstrates increased conspicuity of peritoneal soft tissue thickening. Bilateral pleural effusions have also increased compared to prior outside CT, now moderate in size. Redemonstration of multiple bilateral pulmonary nodules most likely metastatic. Biopsy Local anesthesia was administered. Under CT guidance, the biopsy needle was advanced to the target and biopsy was performed. Coaxial needle: 17 gauge Core needle biopsy device: PolicyGenius Core needle size: 18 gauge Number of core specimens: 4 Fine needle aspiration device: Chiba Fine needle size: 22 gauge Number of FNA specimens: 3 On- site biopsy touch preparation: Yes Additional sampling recommendations: None Preliminary assessment of sample adequacy: Adequate Needle removal The biopsy needle was removed and a sterile dressing was applied. Tract embolization: None Imaging following biopsy Immediate post-biopsy imaging was performed using noncontrast CT. Post-biopsy imaging findings: No hematoma or other postprocedural complication. Contrast Contrast agent: None Contrast volume (mL): [address] dose length product (mGy-cm): 1031 Additional Details Additional description of procedure: None Equipment details: None Specimens removed: Biopsy samples as detailed above Estimated blood loss (mL): Less than 10 Standardized report: [email or web address] Attestation Signer name: Pricila Negrete MD I attest that I was present for the entire procedure. I reviewed the stored images and agree with the report as written. Signed by: Pricila Negrete MD on 05/20/2020 11:21 AM Dictated By: PRICILA NEGRETE MD 1121 Transcribed By: PRINCE on 05/20/20 1121 COPY TO: ANA ECHEVERRIA MD BIOPSY ABDOMINAL MASS 2020-05-20 11:18:00 [place] [address] Patient Name: CARRI COURTNEY MR #: [id number] : 1945 Age/Sex: 75/M Req #: [id number] Adm Physician: Ordered by: ANA ECHEVERRIA MD Report #: [id number] Location: [place] Room/Bed: Procedure: [id number] IR/BIOPSY ABDOMINAL MASS Exam Date: 05/20/20 Exam Time: 0900 REPORT STATUS: Signed PROCEDURE: CT-guided biopsy Procedural Personnel Attending physician(s): Pricila Negrete MD Fellow physician(s): None Resident physician(s): None Advanced practice provider(s): None Pre-procedure diagnosis: Peritoneal carcinomatosis Post-procedure diagnosis: Same Indication: Histopathologic diagnosis Previous biopsy of same target (QCDR): No Additional clinical history: None Complications: No immediate complications. IMPRESSION: CT-guided biopsy of peritoneal soft tissue thickening. Plan: Specimen(s) sent for evaluation. PROCEDURE SUMMARY: - Percutaneous CT-guided core needle and fine needle aspiration biopsy biopsy - Additional procedure(s): None PROCEDURE DETAILS: Pre-procedure Reference imaging for biopsy target: Outside abdomen/pelvis CT Consent: Informed consent for the procedure including risks, benefits and alternatives was obtained and time-out was performed prior to the procedure. Preparation: The site was prepared and draped using maximal sterile barrier technique including cutaneous antisepsis. Anesthesia/sedation Level of anesthesia/sedation: Moderate sedation (conscious sedation) 0.5mg Versed, 25mc g fentanyl Anesthesia/sedation administered by: Independent trained observer under attending supervision with continuous monitoring of the patient?s level of consciousness and physiologic status Total intra-service sedation time (minutes): 45 Imaging prior to biopsy The patient was positioned supine. Initial imaging was performed using noncontrast CT. Biopsy target: - Maximal diameter (cm): 4 - Location: Midline/RUQ abdominal peritoneal soft tissue Other findings: Preliminary imaging demonstrates increased conspicuity of peritoneal soft tissue thickening. Bilateral pleural effusions have also increased compared to prior outside CT, now moderate in size. Redemonstration of multiple bilateral pulmonary nodules most likely metastatic. Biopsy Local anesthesia was administered. Under CT guidance, the biopsy needle was advanced to the target and biopsy was performed. Coaxial needle: 17 gauge Core needle biopsy device: PolicyGenius Core needle size: 18 gauge Number of core specimens: 4 Fine needle aspiration device: Chiba Fine needle size: 22 gauge Number of FNA specimens: 3 On-site biopsy touch preparation: Yes Additional sampling recommendations: None Preliminary assessment of sample adequacy: Adequate Needle removal The biopsy needle was removed and a sterile dressing was applied. Tract embolization: None Imaging following biopsy Immediate post-biopsy imaging was performed using noncontrast CT. Post-biopsy imaging findings: No hematoma or other postprocedural complication. Contrast Contrast agent: None Contrast volume (mL): [address] dose length product (mGy-cm): 1031 Additional Details Additional description of procedure: None Equipment details: None Specimens removed: Biopsy samples as detailed above Estimated blood loss (mL): Less than 10 Standardized report: [email or web address] Attestation Signer name: Pricila Negrete MD I attest that I was present for the entire procedure. I reviewed the stored images and agree with the report as written. Signed by: Pricila Negrete MD on 05/20/2020 11:21 AM Dictated By: PRICILA NEGRETE MD 112 Transcribed By: PRINCE on 05/20/20 1121 COPY TO: ANA ECHEVERRIA MD ABDOMEN-1VIEW (KUB) 2020-04-15 12:06:00 [place] [address] Patient Name: CARRI COURTNEY MR #: [id number] : 1945 Age/Sex: 75/M Req #: [id number] Adm Physician: Ordered by: LUIS MANUEL DICKERSON MD Report #: [id number] Location: [facility] Room/Bed: Procedure: [id number] DX/ABDOMEN-1VIEW (KUKristina) Exam Date: 04/15/20 Exam Time: 1150 REPORT STATUS: Signed EXAM: Abdomen Radiograph 1 View(s) INDICATION: [id number] 1150 ABDOMEN PAIN COMPARISON: None FINDINGS: The bowel gas pattern is nonspecific. Moderate volume of formed stool within the colon. Small calcific densities in the abdominal left upper quadrant may be vascular in etiology. No free intraperitoneal air. Degenerative changes of the lumbar spine. IMPRESSION: No acute abdominal radiographic abnormality. Signed by: Verito Bernabe MD on 04/15/2020 12:07 PM Dictated By: VERITO BERNABE MD 1207 Transcribed By: PRINCE on 04/15/20 1207 COPY TO: LUIS MANUEL DICKERSON MD
--- OUTSIDE RECORDS SUMMARY | 2020-06-19 18:30 | XMS REPORT | Continuity of Care Document ---
Author Author [facility] Organization [facility] Address [address] [place] [address] [place] [phone] Phone Unavailable Care Team Providers Care Triage Rn Name Role Phone Yunier COLLINS Attphys Unavailable [...] Source CHEST SINGLE (PORTABLE) 2020-06-15 13:36:00 [facility] : 1945 Sex: M [facility] [address] [place], [place] [address] Patient Name: CARRI COURTNEY MR #: [id number] : 1945 Age/Sex: 75/M Req #: [id number] Adm Physician: Ordered by: CHICA COLLINS MD Report #: [id number] Location: ER Room/Bed: Procedure: [id number] DX/CHEST SINGLE (PORTABLE) Exam Date: 06/15/20 Exam [...] COLLINS MD CHEST 2 VIEWS 2020-05-30 16:52:00 [facility] : 1945 Sex: M [place] [address] Patient Name: CARRI COURTNEY MR #: [id number] : 1945 Age/Sex: 75/M Req #: [id number] Adm Physician: Ordered by: COLEEN GAONA MD Report #: [id number] Location: [place] Room/Bed: Procedure: [id number] DX/CHEST 2 VIEWS Exam Date: 05/30/20 Exam [...] FNA CT GUIDED 1ST LESION 2020-05-20 11:18:00 [place] [address] Patient Name: CARRI COURTNEY MR #: [id number] : 1945 Age/Sex: 75/M Re #: [id number] [facility] Physician: Ordered by: ANA ECHEVERRIA MD Report #: [id number] Location: [place] Room/Bed: Procedure: [id number] IR/FNA CT GUIDED 1ST LESION Exam Date: [...] needle: 17 gauge Core needle biopsy device: Flashtalking Core needle size: 18 gauge Number of [...] ECHEVERRIA MD BIOPSY ABDOMINAL MASS 2020-05-20 11:18:00 [place] [address] Patient Name: CARRI COURTNEY MR #: [id number] : 1945 Age/Sex: 75/M Req #: [id number] Adm Physician: Ordered by: ANA ECHEVERRIA MD Report #: [id number] Location: [place] Room/Bed: Procedure: [id number] IR/BIOPSY ABDOMINAL MASS Exam Date: 05/20/20 Exam [...] needle: 17 gauge Core needle biopsy device: Flashtalking Core needle size: 18 gauge Number of [...] ANA ECHEVERRIA MD ABDOMEN-1VIEW (KUB) 2020-04-15 12:06:00 [place] [address] Patient Name: CARRI COURTNEY MR #: [id number] : 1945 Age/Sex: 75/M Req #: [id number] Adm Physician: Ordered by: LUIS MANUEL DICKERSON MD Report #: [id number] [facility] Room/Bed: Procedure: [id number] DX/ABDOMEN-1VIEW (KUKristina) Exam Date: 04/15/20 Exam Time: [...]
== END 2020-06-16 16:33 | disposition home or self-care (01) ==
LOC: ER 12:24 → INTOOBSV 13:10 → ERHOLD 13:10 → MED/SURG3 15:36
PROVIDERS: ADMIT Family Medicine; ATTEND Family Medicine
DX: E86.0 Dehydration (principal); E46 Unspecified protein-calorie malnutrition; Z68.21 Body mass index [BMI] 21.0-21.9, adult; C80.1 Malignant (primary) neoplasm, unspecified; I48.91 Unspecified atrial fibrillation; Z79.01 Long term (current) use of anticoagulants; L89.152 Pressure ulcer of sacral region, stage 2; L89.312 Pressure ulcer of right buttock, stage 2; S81.011A Laceration without foreign body, right knee, initial encounter; S90.821A Blister (nonthermal), right foot, initial encounter; W64.XXXA Exposure to other animate mechanical forces, initial encounter; Z11.59 Encounter for screening for other viral diseases
CPT/HCPCS: 36415 ×2; 71045; 80048; 80053; 82550; 82553; 82948 ×2; 83735; 83880; 84484; 85025 ×2; 85610; 85730; 93005; 96361; 99251; 99284; C9113 ×2; G0378 ×2; J2405 ×2; J7030; U0002